=== PATIENT | female | born 2000 | race Caucasian/White ===

== ENCOUNTER → 2020-05-16 | Outpatient (REF) | payer BC, OTHER ==
[2020-05-16 18:33] LABS: CHLAMYDIA DNA AMPLIFICATION NEGATIVE (NEGATIVE); GC DNA AMPLIFICATION NEGATIVE (NEGATIVE)
== END ==
LOC: M SFHCLERA 12:54
PROVIDERS: ATTEND Physician Assistant
DX: R30.0 Dysuria (principal)